=== PATIENT | female | born 1985 | race African-American/Black ===

== ENCOUNTER 2016-12-20 17:24 | Emergency (ER) | payer MEDICARE, MEDICAID ==
[~2016-12-20] VITALS: Ht 175.3 cm; Wt 137.0 kg
[~2016-12-20 17:24] MED LIST: CABERGOLINE0.5 MG PO; DOXYCYCLINE MO100 MG ORAL; FLAGYL500 MG ORAL; IBUPROFEN800 MG PO; NAPROSYN250 M1 ORAL; SYNTHROID150 MCG ORAL; SYNTHROID200 MC1 IV; SYNTHROID50 MCG ORAL; SYNTHROID75 MCG ORAL; VAGISTAT-31 EACH VG; ZOFRAN ODT4 MG ORAL
[2016-12-20 17:54] VITALS: BP 119/87
[2016-12-20] MEDS ORDERED: Dexamethasone 4mg/ml vial IVP ONE (18:00)
--- NOTE | 2016-12-20 18:03 | Emergency Room Report ---
History of Present Illness General Chief Complaint: Pain Present Illness HPI 31 y/o female c/o lupus flair up for 2 weeks. Assoc sxs include body aches, joint pain, LE swelling, abd pain, and very dark urine. States she is on Plaquenil daily for her sxs but that she started experiencing sxs 2 weeks ago and put it off due to her daughter graduating from 5th grade. Denies any current n/v/f/c/d, flank pain, abd pain, back pain, neck pain, photophobia, phonophobia, CP, SOB or headache. Allergies: Coded Allergies: ACETAMINOPHEN (Verified Allergy, Severe, Itching, HIVES, 06/14/13) CODEINE (Verified Allergy, Severe, Itching, HIVES, 06/14/13) HYDROCODONE (Verified Allergy, Severe, Itching, HIVES, 06/14/13) TRAMADOL (Verified Allergy, Unknown, 12/20/16) AMOXICILLIN (Verified Adverse Reaction, Unknown, GI UPSET, 12/20/16) Patient History Past Medical History: see triage record Pertinent Family History: none Last Menstrual Period: 11/26 Now: No : 13 Para: 2 Immunizations: UTD Reviewed Nursing Documentation: PMH: Agreed, PSxH: Agreed Nursing Documentation-PMH Hx Asthma: Yes Hx Gastrointestinal Problems: Yes - ULCER Hx Cerebrovascular Accident: Yes Review of Systems All Other Systems: negative except mentioned in HPI Physical Exam Vital Signs Date Time Temp Pulse Resp B/P Pulse Ox O2 Delivery O2 Flow Rate FiO2 12/20/16 17:41 97.9 81 20 123/84 99 Room Air Sp02 EP Interpretation: reviewed, normal General Appearance: no apparent distress, alert, GCS 15, non-toxic Head: normocephalic, atraumatic Eyes: bilateral eye PERRL, bilateral eye normal inspection ENT: hearing grossly normal, normal pharynx, no angioedema, normal voice Neck: full range of motion, supple/symm/no masses Respiratory: chest non-tender, lungs clear, normal breath sounds, speaking full sentences Cardiovascular #1: regular rate, rhythm, no edema Gastrointestinal: normal bowel sounds, soft, non-distended, no guarding, no rebound, tenderness - non specific Genitourinary: CVA tenderness (R), CVA tenderness (L) Musculoskeletal: back normal, gait/station normal, normal range of motion, tender - non specific tenderness along bilateral LE and UE Neurologic: alert, oriented x3, responsive, motor strength/tone normal, sensory intact, speech normal Psychiatric: judgement/insight normal, memory normal, mood/affect normal, no suicidal/homicidal ideation Skin: normal color, no rash, warm/dry, well hydrated Lymphatic: no adenopathy Medical Decision Making PA Attestation Dr. Andrade my supervising physician with whom patient management has been discussed with. Diagnostic Impression: Primary Impression: Lupus (systemic lupus erythematosus) Qualified Codes: M32.19 - Other organ or system involvement in systemic lupus erythematosus Additional Impression: Myalgia ER Course Pt. presents to the ED c/o body aches due to lupus flare up Ddx considered but are not limited to nephritis, UTI, hypocalcemia, hypokalemia , rhabdo, pneumonia, viral syndrome, hypocalcemia, anemia Vital signs: are WNL, pt. is afebrile H&PE are most consistent with myalgia secondary to SLE flare ORDERS: CBC, CMP, UA ED INTERVENTIONS: IV access, NS, Decadron DISCHARGE: At this time pt. is improved and feels normal. Patient is stable for d/c to home after treatment. Will provide printed patient care instructions, and any necessary prescriptions. Care plan and follow up instructions have been discussed with the patient prior to discharge. Laboratory Tests Test 12/20/16 18:10 12/20/16 19:30 White Blood Count 6.8 K/UL (4.8-10.8) Red Blood Count 4.61 M/UL (4.20-5.40) Hemoglobin 13.0 G/DL (12.0-16.0) Hematocrit 40.6 % (37.0-47.0) Mean Corpuscular Volume 88 FL (80-99) Mean Corpuscular Hemoglobin 28.2 PG (27.0-31.0) Mean Corpuscular Hemoglobin Concent 32.0 G/DL (32.0-36.0) Red Cell Distribution Width 16.3 % (11.6-14.8) H Platelet Count 228 K/UL (150-450) Mean Platelet Volume 10.7 FL (6.5-10.1) H Neutrophils (%) (Auto) 54.8 % (45.0-75.0) Lymphocytes (%) (Auto) 37.9 % (20.0-45.0) Monocytes (%) (Auto) 4.7 % (1.0-10.0) Eosinophils (%) (Auto) 1.6 % (0.0-3.0) Basophils (%) (Auto) 1.1 % (0.0-2.0) Sodium Level 143 mEQ/L (135-145) Potassium Level 3.5 mEQ/L (3.4-4.9) Chloride Level 104 mEQ/L (98-107) Carbon Dioxide Level 27 mEQ/L (20-30) Anion Gap 12 (5-15) Blood Urea Nitrogen 9 mg/dL (7-23) Creatinine 1.1 mg/dL (0.5-0.9) H Estimate Glomerular Filtration Rate > 60 mL/min (>60) Glucose Level 89 mg/dL (74-106) Calcium Level 9.9 mg/dL (8.6-10.2) Total Bilirubin 0.2 mg/dL (0.0-1.2) Aspartate Amino Transferase (AST) 28 U/L (5-40) Alanine Aminotransferase (ALT) 19 U/L (3-33) Alkaline Phosphatase 56 U/L (35-104) Total Creatine Kinase 350 U/L (26-140) H Total Protein 7.7 g/dL (6.6-8.7) Albumin 4.2 g/dL (3.5-5.2) Globulin 3.5 g/dL Albumin/Globulin Ratio 1.2 (1.0-2.7) Urine Color Yellow Urine Appearance Slightly cloudy Urine pH 6 (4.5-8.0) Urine Specific [place] 1.030 (1.005-1.035) Urine Protein Negative (NEGATIVE) Urine Glucose (UA) Negative (NEGATIVE) Urine Ketones Negative (NEGATIVE) Urine Occult Blood Negative (NEGATIVE) Urine Nitrite Negative (NEGATIVE) Urine Bilirubin Negative (NEGATIVE) Urine Urobilinogen Normal MG/DL (0.0-1.0) Urine Leukocyte Esterase 1+ (NEGATIVE) H Urine RBC 0 /HPF (0 - 2) Urine WBC 2-4 /HPF (0 - 2) Urine Squamous Epithelial Cells Moderate /LPF (NONE/OCC) H Urine Amorphous Sediment Moderate /LPF (NONE) H Urine Bacteria Few /HPF (NONE) Lab Results Impression Laboratory Tests Test 12/20/16 18:10 White Blood Count 6.8 K/UL (4.8-10.8) Red Blood Count 4.61 M/UL (4.20-5.40) Hemoglobin 13.0 G/DL (12.0-16.0) Hematocrit 40.6 % (37.0-47.0) Mean Corpuscular Volume 88 FL (80-99) Mean Corpuscular Hemoglobin 28.2 PG (27.0-31.0) Mean Corpuscular Hemoglobin Concent 32.0 G/DL (32.0-36.0) Red Cell Distribution Width 16.3 % (11.6-14.8) H Platelet Count 228 K/UL (150-450) Mean Platelet Volume 10.7 FL (6.5-10.1) H Neutrophils (%) (Auto) 54.8 % (45.0-75.0) Lymphocytes (%) (Auto) 37.9 % (20.0-45.0) Monocytes (%) (Auto) 4.7 % (1.0-10.0) Eosinophils (%) (Auto) 1.6 % (0.0-3.0) Basophils (%) (Auto) 1.1 % (0.0-2.0) Sodium Level 143 mEQ/L (135-145) Potassium Level 3.5 mEQ/L (3.4-4.9) Chloride Level 104 mEQ/L (98-107) Carbon Dioxide Level 27 mEQ/L (20-30) Anion Gap 12 (5-15) Blood Urea Nitrogen 9 mg/dL (7-23) Creatinine 1.1 mg/dL (0.5-0.9) H Estimate Glomerular Filtration Rate > 60 mL/min (>60) Glucose Level 89 mg/dL (74-106) Calcium Level 9.9 mg/dL (8.6-10.2) Total Bilirubin 0.2 mg/dL (0.0-1.2) Aspartate Amino Transferase (AST) 28 U/L (5-40) Alanine Aminotransferase (ALT) 19 U/L (3-33) Alkaline Phosphatase 56 U/L (35-104) Total Creatine Kinase 350 U/L (26-140) H Total Protein 7.7 g/dL (6.6-8.7) Albumin 4.2 g/dL (3.5-5.2) Globulin 3.5 g/dL Albumin/Globulin Ratio 1.2 (1.0-2.7) Chest X-Ray Diagnostic Results Chest X-Ray Ordered: No Last Vital Signs Date Time Temp Pulse Resp B/P Pulse Ox O2 Delivery O2 Flow Rate FiO2 12/20/16 19:39 97.9 83 19 120/88 98 Room Air Disposition: HOME, SELF-CARE Condition: Improved Scripts Prednisone* (PREDNISONE*) 50 Mg Tablet 50 MG ORAL DAILY, #5 TAB 0 Refills Prov: JIM TUCKER 12/20/16 Patient Instructions: Systemic Lupus Erythematosus, Adult Additional Instructions: Patient advised to take medication as directed. Follow up with PCP within next 5 -7 days as needed. Return to ER if you experience any Swelling This can be in the hands, face, feet, belly, or around the eyes, Tiredness, Urine that looks brown or foamy, Urinating less often than normal or abnormal High blood pressure along with symptoms that brought you in. JIM TUCKER Dec 20, 2016 18:02
[2016-12-20 18:23] LABS: BASOPHILS % (AUTO) 1.1 % (0.0-2.0); EOSINOPHILS % (AUTO) 1.6 % (0.0-3.0); LYMPHOCYTES % (AUTO) 37.9 % (20.0-45.0); MEAN CORPUSCULAR HEMOGLOBIN 28.2 PG (27.0-31.0); MEAN CORPUSCULAR VOLUME 88 FL (80-99); MEAN PLATELET VOLUME 10.7 FL (6.5-10.1); MONOCYTES % (AUTO) 4.7 % (1.0-10.0); NEUTROPHILS % (AUTO) 54.8 % (45.0-75.0); PLATELET COUNT 228 K/UL (150-450); RED BLOOD COUNT 4.61 M/UL (4.20-5.40); RED CELL DISTRIBUTION WIDTH 16.3 % (11.6-14.8); WHITE BLOOD COUNT 6.8 K/UL (4.8-10.8)
[2016-12-20 18:52] LABS: ALANINE AMINOTRANSFERASE 19 U/L (3-33); ALBUMIN/GLOBULIN RATIO 1.2 (1.0-2.7); ANION GAP 12 (5-15); ASPARTATE AMINO TRANSFERASE 28 U/L (5-40); CALCIUM 9.9 mg/dL (8.6-10.2); CARBON DIOXIDE 27 mEQ/L (20-30); CHLORIDE 104 mEQ/L (98-107); CREATININE 1.1 mg/dL (0.5-0.9); GLOMERULAR FILTRATION RATE > 60 mL/min (>60); HEMOLYSIS 4; POTASSIUM 3.5 mEQ/L (3.4-4.9); SODIUM 143 mEQ/L (135-145); TOTAL PROTEIN 7.7 g/dL (6.6-8.7)
[2016-12-20] MEDS ORDERED: PREDNISONE50 MG ORAL (19:24)
[2016-12-20 19:39] VITALS: BP 120/88
[2016-12-20 20:09] LABS: APPEARANCE,URINE SLIGHTLY CLOUDY; KETONES,URINE NEGATIVE (NEGATIVE); LEUKOCYTE ESTERASE ,URINE 1+ (NEGATIVE); NITRITE,URINE NEGATIVE (NEGATIVE); PH,URINE 6 (4.5-8.0); PROTEIN,URINE NEGATIVE (NEGATIVE); UROBILINOGEN,URINE NORMAL MG/DL (0.0-1.0)
[2016-12-20 20:20] LABS: AMORPHOUS SEDIMENT,UR MODERATE /LPF; BACTERIA,URINE FEW /HPF; RBC,URINE 0 /HPF (0 - 2); SQUAMOUS EPITHELIAL CELL,UR MODERATE /LPF (NONE/OCC)
== END 2016-12-20 19:39 | disposition home or self-care (01) ==
LOC: EMR 18:02
DX: M32.9 Systemic lupus erythematosus, unspecified (principal); M79.1 Myalgia; J45.909 Unspecified asthma, uncomplicated; Z86.73 Personal history of transient ischemic attack (TIA), and cerebral infarction without residual deficits
CPT/HCPCS: 36415; 80053; 81001; 82550; 85025; 96374; 96375; 99284; J1100

== ENCOUNTER 2018-01-27 20:40 | Emergency (ER) | payer MEDICARE, MEDICAID ==
[~2018-01-27] VITALS: Ht 175.3 cm; Wt 133.4 kg
[~2018-01-27 20:40] MED LIST changes: +PREDNISONE50 MG ORAL
--- NOTE | 2018-01-27 21:21 | Emergency Room Report ---
History of Present Illness General Chief Complaint: Complications Source: Patient Present Illness HPI Is a 32-year-old female who has lupus. She has a history of 14 with 8 miscarriages. Has to and 2 live . She presents with chief complaint of vaginal bleeding. She says she is approximately 2-4 weeks . She took a home dressing test 2 weeks ago and was positive. She started spotting 4 days ago. Today she passed several large clots. Cramping in nature. No nausea no vomiting. No fever chills. Nothing made it better. Nothing made it worse. She is O+ blood type. Allergies: Coded Allergies: ACETAMINOPHEN (Verified Allergy, Severe, Itching, HIVES, 06/14/13) CODEINE (Verified Allergy, Severe, Itching, HIVES, 06/14/13) HYDROCODONE (Verified Allergy, Severe, Itching, HIVES, 06/14/13) TRAMADOL (Verified Allergy, Unknown, 12/20/16) AMOXICILLIN (Verified Adverse Reaction, Unknown, GI UPSET, 12/20/16) Patient History Past Medical History: see triage record, old chart reviewed Past Surgical History: other Pertinent Family History: none Social History: Denies: smoking Last Menstrual Period: November Now: Yes Immunizations: other Reviewed Nursing Documentation: PMH: Agreed; PSxH: Agreed Nursing Documentation-PMH Hx Asthma: Yes Hx Gastrointestinal Problems: Yes - ULCER Hx Cerebrovascular Accident: Yes Review of Systems Eye: Denies: eye pain, blurred vision ENT: Denies: ear pain, nose congestion, throat swelling Respiratory: Denies: cough, shortness of breath Cardiovascular: Denies: chest pain, palpitations Gastrointestinal: Denies: abdominal pain, diarrhea, nausea, vomiting Musculoskeletal: Denies: back pain, joint pain Skin: Denies: rash Neurological: Denies: headache, numbness Endocrine: Denies: increased thirst, increased urine Hematologic/Lymphatic: Denies: easy bruising All Other Systems: negative except mentioned in HPI Physical Exam Vital Signs Date Time Temp Pulse Resp B/P (MAP) Pulse Ox O2 Delivery O2 Flow Rate FiO2 01/27/18 20:53 98.1 96 18 124/83 99 Room Air 98.1 vitals normal Sp02 EP Interpretation: reviewed, normal General Appearance: well appearing, no apparent distress, alert, obese Head: normocephalic, atraumatic Eyes: bilateral eye PERRL, bilateral eye EOMI ENT: hearing grossly normal, normal pharynx Neck: full range of motion, supple, no meningismus Respiratory: chest non-tender, lungs clear, normal breath sounds Cardiovascular #1: regular rate, rhythm, no murmur Gastrointestinal: normal bowel sounds, non tender, no mass, no organomegaly, no bruit, non-distended Musculoskeletal: back normal, gait/station normal, normal range of motion Psychiatric: mood/affect normal Skin: warm/dry Medical Decision Making Diagnostic Impression: Primary Impression: Spontaneous miscarriage ER Course Patient with symptoms consistent with spontaneous miscarriage. No evidence of ectopic. This may be very early in the but she show me large amount of clots in the toilet. She has a history of miscarriages. This most likely due to her lupus. CT/MRI/US Diagnostic Results CT/MRI/US Diagnostic Results : Imaging Test Ordered: pelvic ultrasound Impression increase echogenic material in uterus and pelvic area. Last Vital Signs Date Time Temp Pulse Resp B/P (MAP) Pulse Ox O2 Delivery O2 Flow Rate FiO2 01/27/18 20:53 98.1 96 18 124/83 99 Room Air 98.1 Status: improved Disposition: HOME, SELF-CARE Condition: Stable Additional Instructions: Follow-up your doctor in 7 days. Return if symptom worsen. FREDDY LEPE M.D. Jan 27, 2018 21:21
[2018-01-27 23:05] VITALS: BP 100/71
--- NOTE | 2018-01-28 09:40 | Diagnostic Imaging Report ---
Indication: Positive home test, pelvic pain, currently negative beta-hCG, passing clots Technique: Transabdominal and transvaginal images Comparison: 10/03/2013 Findings: Uterus measures 8.8 cm length by 3.6 cm AP. The endometrium demonstrates minimal echogenic material. There is a questionable 2.5 cm fundal fibroid. The left ovary measures 2.5 cm in length. Right ovary measures 3.9 cm in length and demonstrates a 3 cm corpus luteum. Nabothian cysts are seen in the cervix. No free cul-de-sac fluid Impression: No intrauterine demonstrated. Given stated clinical history and laboratory findings, most likely represents spontaneous . No definite evidence of retained products of conception. Recommend serial beta hCGs and follow-up sonography is indicated Questionable 2.5 cm fundal fibroid, not demonstrated previously so could be artifactual
== END 2018-01-27 23:07 | disposition home or self-care (01) ==
LOC: EMR 21:09
DX: O03.9 Complete or unspecified spontaneous abortion without complication (principal); Z88.6 Allergy status to analgesic agent; Z88.0 Allergy status to penicillin; Z88.5 Allergy status to narcotic agent
CPT/HCPCS: 36415; 76830; 76856; 84702; 99284

== ENCOUNTER 2018-02-16 20:47 | Emergency (ER) | payer MEDICARE, MEDICAID ==
[~2018-02-16] VITALS: Ht 175.3 cm; Wt 128.4 kg
[2018-02-16 21:00] VITALS: BP 115/84
--- NOTE | 2018-02-16 21:06 | Emergency Room Report ---
History of Present Illness General Chief Complaint: Pain Source: Patient, Medical Record Present Illness HPI Is a 32-year-old female with a history lupus with frequent flareups. She also has a history kidney stone. She said she's been having back pain mostly on the right side but also on the left side. His been ongoing for last 3 days. She's felt like kidney stones or moving. This also caused a flareup of her lupus. Pain is 10 out of 10. Worse with movement. Unable to sleep. No nausea no vomiting. No fever chills but no dysuria frequency. No hematuria. The demented better. Nothing made it worse. No vaginal bleeding. Allergies: Coded Allergies: ACETAMINOPHEN (Verified Allergy, Severe, Itching, HIVES, 02/16/18) CODEINE (Verified Allergy, Severe, Itching, HIVES, 02/16/18) HYDROCODONE (Verified Allergy, Severe, Itching, HIVES, 02/16/18) TRAMADOL (Verified Allergy, Unknown, 02/16/18) AMOXICILLIN (Verified Adverse Reaction, Unknown, GI UPSET, 02/16/18) Patient History Past Medical History: see triage record, old chart reviewed Past Surgical History: other Pertinent Family History: none Social History: Denies: smoking Last Menstrual Period: unk Now: No Immunizations: other Reviewed Nursing Documentation: PMH: Agreed; PSxH: Agreed Nursing Documentation-PMH Past Medical History: No History, Except For Hx Asthma: Yes Hx Gastrointestinal Problems: Yes - ULCER Hx Cerebrovascular Accident: Yes Review of Systems Eye: Denies: eye pain, blurred vision ENT: Denies: ear pain, nose congestion, throat swelling Respiratory: Denies: cough, shortness of breath Cardiovascular: Denies: chest pain, palpitations Gastrointestinal: Denies: abdominal pain, diarrhea, nausea, vomiting Musculoskeletal: Reports: back pain; Denies: joint pain Skin: Denies: rash Neurological: Denies: headache, numbness Endocrine: Denies: increased thirst, increased urine Hematologic/Lymphatic: Denies: easy bruising All Other Systems: negative except mentioned in HPI Physical Exam Vital Signs Date Time Temp Pulse Resp B/P (MAP) Pulse Ox O2 Delivery O2 Flow Rate FiO2 02/16/18 20:50 98.1 90 16 117/87 98 98.1 vitals normal Sp02 EP Interpretation: reviewed, normal General Appearance: well appearing, no apparent distress, alert, obese Head: normocephalic, atraumatic Eyes: bilateral eye PERRL, bilateral eye EOMI ENT: hearing grossly normal, normal pharynx Neck: full range of motion, supple, no meningismus Respiratory: chest non-tender, lungs clear, normal breath sounds Cardiovascular #1: regular rate, rhythm, no murmur Gastrointestinal: normal bowel sounds, non tender, no mass, no organomegaly, no bruit, non-distended Genitourinary: CVA tenderness (R) Musculoskeletal: gait/station normal, normal range of motion Psychiatric: mood/affect normal Skin: warm/dry Medical Decision Making Diagnostic Impression: Primary Impression: Back pain Qualified Codes: M54.5 - Low back pain ER Course Patient presents with back pain. No evidence of ureteral stone. No evidence of infection. No evidence of ectopic, acute abdomen, cauda equina syndrome, spinal epidural abscess or neoplastic process. Pain is better now. We'll discharge home. Lab Results Impression labs normal CT/MRI/US Diagnostic Results CT/MRI/US Diagnostic Results : Imaging Test Ordered: CT abdomen and pelvis Impression negative per radiologist Last Vital Signs Date Time Temp Pulse Resp B/P (MAP) Pulse Ox O2 Delivery O2 Flow Rate FiO2 02/16/18 20:50 98.1 90 16 117/87 98 98.1 Status: improved Disposition: HOME, SELF-CARE Condition: Stable Scripts Oxycodone Hcl/Acetaminophen 5-325* (OXYCODONE-ACETAMINOPHEN 5-325*) 1 Each Tablet 1 TAB ORAL Q6H PRN for For Pain, #15 TAB 0 Refills Prov: FREDDY LEPE M.D. 02/16/18 Additional Instructions: Follow-up with your doctor in 7 days. Return if symptom worsen. FREDDY LEPE M.D. Feb 16, 2018 21:06
[2018-02-16 21:15] LABS: APPEARANCE,URINE CLEAR; BILIRUBIN, URINE NEGATIVE (NEGATIVE); COLOR,URINE PALE YELLOW; GLUCOSE, URINE (UA) NEGATIVE (NEGATIVE); KETONES,URINE NEGATIVE (NEGATIVE); LEUKOCYTE ESTERASE ,URINE NEGATIVE (NEGATIVE); NITRITE,URINE NEGATIVE (NEGATIVE); PH,URINE 6 (4.5-8.0); PROTEIN,URINE NEGATIVE (NEGATIVE); UROBILINOGEN,URINE NORMAL (NORMAL)
[2018-02-16] MEDS ORDERED: Morphine Sulfate 10mg/ml Inj IVP ONE (21:15)
[2018-02-16] MEDS ORDERED: DiphenhydrAMINE 50mg/ml Inj IVP ONE (21:30)
[2018-02-16 21:41] LABS: HEMATOCRIT 45.7 % (37.0-47.0); HEMOGLOBIN 14.2 G/DL (12.0-16.0); LYMPHOCYTES % (AUTO) 32.7 % (20.0-45.0); MEAN CORPUSCULAR VOLUME 85 FL (80-99); MONOCYTES % (AUTO) 4.1 % (1.0-10.0); NEUTROPHILS % (AUTO) 61.3 % (45.0-75.0); PLATELET COUNT 343 K/UL (150-450); RED BLOOD COUNT 5.39 M/UL (4.20-5.40); RED CELL DISTRIBUTION WIDTH 15.5 % (11.6-14.8); WHITE BLOOD COUNT 9.6 K/UL (4.8-10.8)
[2018-02-16 21:47] LABS: ANION GAP 8 mmol/L (5-15); BLOOD UREA NITROGEN 11 mg/dL (7-18); CALCIUM 9.8 MG/DL (8.5-10.1); CARBON DIOXIDE 26 MMOL/L (21-32); CHLORIDE 106 MMOL/L (98-107); POTASSIUM 3.9 MMOL/L (3.5-5.1); SODIUM 139 MMOL/L (136-145)
[2018-02-16] MEDS ORDERED: OXYCODONE-ACET1 EAC3 ORAL (22:25)
[2018-02-16 22:40] VITALS: BP 115/84
--- NOTE | 2018-02-17 10:24 | Diagnostic Imaging Report ---
Indication: Abdominal pain Technique: Noncontrast CT of the abdomen and pelvis utilizing automated exposure control. Axial, sagittal and coronal reformats presented. CT dose: Total DLP 1537.85 mGycm; CTDI vol 26.25 mGy Comparison: 07/28/2013 Findings: Please note that evaluation of the abdominal and pelvic viscera and vascular structures is limited without the use of intravenous and oral contrast. Within these limitations the following observations are made: Imaged lung bases without focal airspace consolidation, pleural effusion or pneumothorax. Heart size within normal limits. No significant pericardial effusion. Noncontrast evaluation of the liver, gallbladder, spleen, adrenal glands and pancreas grossly unremarkable. Kidneys symmetric in size. There are punctate nonobstructing stones in the lower poles of the bilateral kidneys; the largest stone is on the right and measures approximately 6 mm. No evidence of hydronephrosis bilaterally. Bladder is decompressed, limiting its evaluation. Uterus and adnexa are grossly unremarkable for noncontrast CT. There is no free intraperitoneal air or fluid. No evidence of bowel obstruction or definite inflammatory change in the mesentery. Appendix not definitively identified however there are no focal inflammatory changes in the right lower quadrant suggest acute appendicitis. Abdominal aorta is normal in caliber. No pathologically enlarged/conglomerate lymphadenopathy. No acute osseous abnormality. There is a tiny fat-containing umbilical hernia. IMPRESSION: Limited exam without intravenous and oral contrast. Within these limitations: * Bilateral subcentimeter nonobstructing renal calculi. No evidence of hydronephrosis bilaterally. * No bowel obstruction or inflammation. This corresponds with the statrad preliminary report. The CT scanner at [facility] is accredited by the [employer] and the scans are performed using protocols designed to limit radiation exposure to as low as reasonably achievable to attain images of sufficient resolution adequate for diagnostic evaluation.
== END 2018-02-16 22:44 | disposition home or self-care (01) ==
LOC: EMR 21:54
DX: M54.5 Low back pain (principal); M32.9 Systemic lupus erythematosus, unspecified; J45.909 Unspecified asthma, uncomplicated; Z86.73 Personal history of transient ischemic attack (TIA), and cerebral infarction without residual deficits
CPT/HCPCS: 36415; 74176; 80048; 80307; 81003; 81025; 85025; 99284; J1200; J2270; J2405

== ENCOUNTER 2018-04-16 19:44 | Emergency (ER) | payer MEDICARE, MEDICAID ==
[~2018-04-16] VITALS: Ht 175.3 cm; Wt 134.3 kg
[~2018-04-16 19:44] MED LIST changes: +OXYCODONE-ACET1 EAC3 ORAL
[2018-04-16 20:03] VITALS: BP 109/75
[2018-04-16] MEDS ORDERED: Sodium Chloride 500ML 500 ML IV ONE (20:18)
[2018-04-16 20:24] LABS: APPEARANCE,URINE CLOUDY; BILIRUBIN, URINE NEGATIVE (NEGATIVE); COLOR,URINE RED; GLUCOSE, URINE (UA) NEGATIVE (NEGATIVE); KETONES,URINE NEGATIVE (NEGATIVE); LEUKOCYTE ESTERASE ,URINE 1+ (NEGATIVE); NITRITE,URINE NEGATIVE (NEGATIVE); PH,URINE 8 (4.5-8.0); PROTEIN,URINE 4+ (NEGATIVE); UROBILINOGEN,URINE NORMAL MG/DL (0.0-1.0)
[2018-04-16] MEDS ORDERED: Morphine Sulfate 4mg/ml Inj (IV USE ONLY) IVP ONE (20:30)
[2018-04-16 21:05] LABS: EOSINOPHILS % (AUTO) 1.7 % (0.0-3.0); HEMATOCRIT 40.1 % (37.0-47.0); HEMOGLOBIN 13.3 G/DL (12.0-16.0); MEAN CORPUSCULAR VOLUME 88 FL (80-99); NEUTROPHILS % (AUTO) 65.4 % (45.0-75.0); PLATELET COUNT 283 K/UL (150-450); RED BLOOD COUNT 4.55 M/UL (4.20-5.40); RED CELL DISTRIBUTION WIDTH 15.1 % (11.6-14.8)
[2018-04-16 21:31] LABS: ANION GAP 7 mmol/L (5-15); BLOOD UREA NITROGEN 13 mg/dL (7-18); CALCIUM 9.9 MG/DL (8.5-10.1); CARBON DIOXIDE 25 MMOL/L (21-32); CHLORIDE 108 MMOL/L (98-107); CREATININE 1.2 MG/DL (0.55-1.30); POTASSIUM 3.3 MMOL/L (3.5-5.1); SODIUM 140 MMOL/L (136-145)
[2018-04-16 21:35] LABS: ALANINE AMINOTRANSFERASE 20 U/L (12-78); ALBUMIN 3.6 G/DL (3.4-5.0); ALBUMIN/GLOBULIN RATIO 0.8 (1.0-2.7); ALKALINE PHOSPHATASE 72 U/L (46-116); ASPARTATE AMINO TRANSFERASE 15 U/L (15-37); BILIRUBIN,TOTAL 0.4 MG/DL (0.2-1.0)
[2018-04-16] MEDS ORDERED: PERCOCET 5-3251 EACH ORAL (22:56)
--- NOTE | 2018-04-16 23:04 | Diagnostic Imaging Report ---
EXAM: US Pelvis Complete, Transabdominal CLINICAL HISTORY: ABD PAIN TECHNIQUE: Real-time transabdominal pelvic ultrasound (complete) with image documentation. COMPARISON: CT performed on 02/16/18. FINDINGS: Uterus/cervix: The uterus measures 9.3 x 4.1 x 6.4 cm. The endometrial stripe measures 7 mm. Hypoechoic areas are seen within the uterus which may be related to intramural fibroids. The largest measures approximately 1.7 x 2.1 x 0.9 cm. Right ovary: The right ovary is grossly unremarkable and measures 2.9 x 1.7 x 2.1 cm. The right ovary demonstrates vascular flow. Left ovary: The left ovary is grossly unremarkable and measures 4.4 x 2.2 x 2.4 cm. The left ovary demonstrates vascular flow. Free fluid: No evidence for free fluid or adnexal mass. Bladder: Grossly unremarkable. IMPRESSION: Fibroids suspected in the uterus.
[2018-04-16 23:06] VITALS: BP 110/73
--- NOTE | 2018-04-19 22:32 | Emergency Room Report ---
History of Present Illness General Chief Complaint: Abdominal Pain Source: Patient, Medical Record Present Illness HPI 32-year-old female presents ED for evaluation. Presenting with vaginal bleeding and lower abdominal pain. States she's had bleeding for nearly 2 months now. Pain is dull, 9 out of 10, nonradiating. Was told that she has ovarian cysts in the past. Does not believe she is . Denies nausea or vomiting. Denies fevers or chills. No other aggravating relieving factors. Denies any other associated symptoms Allergies: Coded Allergies: ACETAMINOPHEN (Verified Allergy, Severe, Itching, HIVES, 04/16/18) CODEINE (Verified Allergy, Severe, Itching, HIVES, 04/16/18) HYDROCODONE (Verified Allergy, Severe, Itching, HIVES, 04/16/18) TRAMADOL (Verified Allergy, Unknown, 04/16/18) AMOXICILLIN (Verified Adverse Reaction, Unknown, GI UPSET, 04/16/18) Patient History Past Medical History: asthma, CVA/TIA Past Surgical History: none Pertinent Family History: none Social History: Denies: smoking, alcohol use, drug use Last Menstrual Period: a month and half ago Now: No Immunizations: UTD Reviewed Nursing Documentation: PMH: Agreed; PSxH: Agreed Nursing Documentation-PMH Past Medical History: No History, Except For Hx Asthma: Yes Hx Gastrointestinal Problems: Yes - ULCER Hx Cerebrovascular Accident: Yes Review of Systems All Other Systems: negative except mentioned in HPI Physical Exam Vital Signs Date Time Temp Pulse Resp B/P (MAP) Pulse Ox O2 Delivery O2 Flow Rate FiO2 04/16/18 19:50 98.1 85 15 109/75 97 Room Air 98.1 Sp02 EP Interpretation: reviewed, normal General Appearance: no apparent distress, alert, GCS 15, non-toxic Head: normocephalic, atraumatic Eyes: bilateral eye normal inspection, bilateral eye PERRL ENT: hearing grossly normal, normal pharynx, no angioedema, normal voice Neck: full range of motion, supple/symm/no masses Respiratory: chest non-tender, lungs clear, normal breath sounds, speaking full sentences Cardiovascular #1: regular rate, rhythm, no edema Cardiovascular #2: 2+ carotid (R), 2+ carotid (L), 2+ radial (R), 2+ radial (L) , 2+ dorsalis pedis (R), 2+ dorsalis pedis (L) Gastrointestinal: normal bowel sounds, non tender, soft, non-distended, no guarding, no rebound Rectal: deferred Genitourinary: normal inspection, no CVA tenderness Musculoskeletal: back normal, gait/station normal, normal range of motion, non- tender Neurologic: alert, oriented x3, responsive, motor strength/tone normal, sensory intact, speech normal Psychiatric: judgement/insight normal, memory normal, mood/affect normal, no suicidal/homicidal ideation Reflexes: 3+ bicep (R), 3+ bicep (L), 3+ tricep (R), 3+ tricep (L), 3+ knee (R) , 3+ knee (L) Skin: normal color, no rash, warm/dry, well hydrated Lymphatic: no adenopathy Medical Decision Making Diagnostic Impression: Primary Impression: Fibroids Qualified Codes: D25.9 - Leiomyoma of uterus, unspecified ER Course Hospital Course 32-year-old female presents to ED complaining of lower abdominal pain + bleeding x 2 months Differential diagnoses include: gastrits, gastroenterits, ectopic , ovarian torsion/cyst, UTI Clinical course Patient placed on stretcher in ED. After initial history and physical I ordered labs, IV fluids and pain meds and pelvic ultrasound. Labs-no leukocytosis, hb/hct stable, electrolytes okay, beta hCG negative, UA negative Pelvic ultrasound- fibroids Discussed findings with patient. Patient states she was told many years ago that she may have fibroids but thought that they went away. I explained about fibroids to the patient. patient states she has a OBGYN to followup with. Safe for discharge with close outpatient follow-up Diagnosis - fibroids Stable and discharged to home. Followup with PMD/OUTSOLE SCHEDULER. Return to ED if symptoms recur or worsen Labs Test 04/16/18 20:10 04/16/18 20:32 Urine Color Red Urine Appearance Cloudy Urine pH 8 (4.5-8.0) Urine Specific [place] 1.015 (1.005-1.035) Urine Protein 4+ (NEGATIVE) Urine Glucose (UA) Negative (NEGATIVE) Urine Ketones Negative (NEGATIVE) Urine Blood 5+ (NEGATIVE) Urine Nitrite Negative (NEGATIVE) Urine Bilirubin Negative (NEGATIVE) Urine Urobilinogen Normal MG/DL (0.0-1.0) Urine Leukocyte Esterase 1+ (NEGATIVE) Urine RBC Tntc /HPF (0 - 2) Urine WBC 5-10 /HPF (0 - 2) Urine Squamous Epithelial Cells Moderate /LPF (NONE/OCC) Urine Amorphous Sediment Moderate /LPF (NONE) Urine Bacteria Moderate /HPF (NONE) Urine HCG, Qualitative Negative (NEGATIVE) White Blood Count 9.0 K/UL (4.8-10.8) Red Blood Count 4.55 M/UL (4.20-5.40) Hemoglobin 13.3 G/DL (12.0-16.0) Hematocrit 40.1 % (37.0-47.0) Mean Corpuscular Volume 88 FL (80-99) Mean Corpuscular Hemoglobin 29.1 PG (27.0-31.0) Mean Corpuscular Hemoglobin Concent 33.1 G/DL (32.0-36.0) Red Cell Distribution Width 15.1 % (11.6-14.8) Platelet Count 283 K/UL (150-450) Mean Platelet Volume 9.5 FL (6.5-10.1) Neutrophils (%) (Auto) 65.4 % (45.0-75.0) Lymphocytes (%) (Auto) 28.0 % (20.0-45.0) Monocytes (%) (Auto) 4.0 % (1.0-10.0) Eosinophils (%) (Auto) 1.7 % (0.0-3.0) Basophils (%) (Auto) 1.0 % (0.0-2.0) Prothrombin Time 10.7 SEC (9.30-11.50) Prothromb Time International Ratio 1.0 (0.9-1.1) Activated Partial Thromboplast Time 30 SEC (23-33) Sodium Level 140 MMOL/L (136-145) Potassium Level 3.3 MMOL/L (3.5-5.1) Chloride Level 108 MMOL/L (98-107) Carbon Dioxide Level 25 MMOL/L (21-32) Anion Gap 7 mmol/L (5-15) Blood Urea Nitrogen 13 mg/dL (7-18) Creatinine 1.2 MG/DL (0.55-1.30) Estimat Glomerular Filtration Rate > 60 mL/min (>60) Glucose Level 101 MG/DL (74-106) Calcium Level 9.9 MG/DL (8.5-10.1) Total Bilirubin 0.4 MG/DL (0.2-1.0) Aspartate Amino Transf (AST/SGOT) 15 U/L (15-37) Alanine Aminotransferase (ALT/SGPT) 20 U/L (12-78) Alkaline Phosphatase 72 U/L (46-116) Total Protein 8.1 G/DL (6.4-8.2) Albumin 3.6 G/DL (3.4-5.0) Globulin 4.5 g/dL Albumin/Globulin Ratio 0.8 (1.0-2.7) Lipase 225 U/L (73-393) Human Chorionic Gonadotropin, Quant 1 mIU/mL (1-6) CT/MRI/US Diagnostic Results CT/MRI/US Diagnostic Results : Imaging Test Ordered: Pelvic US Impression Uterus/cervix: The uterus measures 9.3 x 4.1 x 6.4 cm. The endometrial stripe measures 7 mm. Hypoechoic areas are seen within the uterus which may be related to intramural fibroids. The largest measures approximately 1.7 x 2.1 x 0.9 cm. Right ovary: The right ovary is grossly unremarkable and measures 2.9 x 1.7 x 2.1 cm. The right ovary demonstrates vascular flow. Left ovary: The left ovary is grossly unremarkable and measures 4.4 x 2.2 x 2.4 cm. The left ovary demonstrates vascular flow. Free fluid: No evidence for free fluid or adnexal mass. Bladder: Grossly unremarkable. Last Vital Signs Date Time Temp Pulse Resp B/P (MAP) Pulse Ox O2 Delivery O2 Flow Rate FiO2 04/16/18 23:06 83 15 110/73 98 Room Air 04/16/18 23:04 98.1 98.1 Status: improved Disposition: HOME, SELF-CARE Condition: Stable Scripts Oxycodone/Acetaminophen 5-325* (PERCOCET 5-325 MG TABLET*) 1 Each Tablet 1 TAB ORAL Q4H PRN for For Pain, #15 TAB 0 Refills Prov: Deion Andrade MD 04/16/18 Referrals: NOT CHOSEN IPA/,REFERRING (PCP) Patient Instructions: Uterine Fibroids, [id number] Deion Andrade MD Apr 19, 2018 22:32
== END 2018-04-16 23:04 | disposition home or self-care (01) ==
LOC: EMR 20:30
DX: D25.9 Leiomyoma of uterus, unspecified (principal); J45.909 Unspecified asthma, uncomplicated; R10.30 Lower abdominal pain, unspecified; Z86.73 Personal history of transient ischemic attack (TIA), and cerebral infarction without residual deficits; Z87.19 Personal history of other diseases of the digestive system; Z88.6 Allergy status to analgesic agent; Z88.5 Allergy status to narcotic agent; Z88.1 Allergy status to other antibiotic agents
CPT/HCPCS: 36415; 76830; 76856; 80053; 81003; 81025; 83690; 84702; 85025; 85610; 85730; 86850; 86900; 86901; 87086; 96374; 99284; J2270; J7040

== ENCOUNTER 2019-03-18 17:02 | Emergency (ER) | payer MEDICARE, MEDICAID ==
[~2019-03-18] VITALS: Ht 175.3 cm; Wt 137.0 kg
[~2019-03-18 17:02] MED LIST changes: +PERCOCET 5-3251 EACH ORAL
[2019-03-18 17:22] VITALS: BP 127/84
--- NOTE | 2019-03-18 17:24 | NUR ---
ED Nurse Note:pt. came with multiple red dots on her lower legs from insect bites
[2019-03-18 17:44] VITALS: BP 127/84
[2019-03-18] MEDS ORDERED: Cephalexin 500mg cap ORAL ONE (17:45)
--- NOTE | 2019-03-18 17:45 | NUR ---
ER DISCHARGE NOTE: Patient is cleared to be discharged per ERMD, pt is aox4, on room air, with stable vital signs. pt was given dc and prescription instructions, pt was able to verbalize understanding, pt is able to ambulate with steady gait. pt took all belongings.
[2019-03-18] MEDS ORDERED: PREDNISONE20 MG ORAL (17:47)
[2019-03-18] MEDS ORDERED: CEPHALEXIN500 MG ORAL (17:47)
--- NOTE | 2019-03-18 23:28 | Emergency Room Report ---
History of Present Illness General Chief Complaint: Skin Rash/Abscess Source: Patient, Medical Record Present Illness HPI 33-year-old female presents ED for evaluation. Complaining of multiple insect bites over both legs. Happened yesterday while playing with her children in the yard. States that the insect bites have been triggered a lupus flare. History of lupus. Pain is throbbing, 7 out of 10, nonradiating. Denies fevers or chills. Denies chest pain or shortness of breath. No other aggravating relieving factors. Denies any other associated symptoms Allergies: Coded Allergies: ACETAMINOPHEN (Verified Allergy, Severe, Itching, HIVES, 04/16/18) CODEINE (Verified Allergy, Severe, Itching, HIVES, 04/16/18) HYDROCODONE (Verified Allergy, Severe, Itching, HIVES, 04/16/18) TRAMADOL (Verified Allergy, Unknown, 04/16/18) AMOXICILLIN (Verified Adverse Reaction, Unknown, GI UPSET, 04/16/18) Patient History Past Medical History: asthma, ulcer, other - SLE Past Surgical History: none Pertinent Family History: none Social History: Denies: smoking, alcohol use, drug use Last Menstrual Period: 02/10/2019 Now: No Immunizations: UTD Reviewed Nursing Documentation: PMH: Agreed; PSxH: Agreed Nursing Documentation-PMH Past Medical History: No History, Except For Hx Cardiac Problems: No - LUPUS Hx Hypertension: No - Hypothyroidism Hx Pacemaker: No - FIBROMYALGIA Hx Asthma: Yes Hx COPD: No Hx Diabetes: No Hx Cancer: No Hx Gastrointestinal Problems: Yes - Gastric ulcer Hx Dialysis: No History Of Psychiatric Problem: No Hx Neurological Problems: Yes - BRAIN TURMOR NON MALIGNENT Hx Cerebrovascular Accident: Yes Hx Seizures: No Review of Systems All Other Systems: negative except mentioned in HPI Physical Exam Vital Signs Date Time Temp Pulse Resp B/P (MAP) Pulse Ox O2 Delivery O2 Flow Rate FiO2 03/18/19 17:15 97.9 84 18 127/84 (98) 99 Room Air Sp02 EP Interpretation: reviewed, normal General Appearance: no apparent distress, alert, GCS 15, non-toxic Head: normocephalic Eyes: bilateral eye normal inspection, bilateral eye PERRL ENT: normal ENT inspection Neck: normal inspection Respiratory: normal inspection Cardiovascular #1: normal inspection Gastrointestinal: normal inspection Rectal: deferred Genitourinary: no CVA tenderness Musculoskeletal: back normal, gait/station normal, normal range of motion, tender Neurologic: alert, oriented x3, responsive, motor strength/tone normal, sensory intact, speech normal Psychiatric: normal inspection Skin: other - multiple erythematous papules noted to both legs. nonerythematous base. Lymphatic: normal inspection Medical Decision Making Diagnostic Impression: Primary Impression: Lupus (systemic lupus erythematosus) Qualified Codes: M32.9 - Systemic lupus erythematosus, unspecified Additional Impression: Insect bites Qualified Codes: S80.869A - Insect bite (nonvenomous), unspecified lower leg, initial encounter; W57.XXXA - Bitten or stung by nonvenomous insect and other nonvenomous arthropods, initial encounter ER Course Hospital Course 33-year-old female presents to ED with redness, swelling to bilateral legs Differential diagnoses include: Cellulitis, dermatitis, insect bite, abscess Clinical course Patient placed on stretcher. After initial history, physical exam reveals a female in no acute distress. On exam there are multiple erythematous papules noted on both legs. None erythematous base. No fluctuance or discharge. Consistent with insect bites. Requiring antibiotics. Patient states this is triggering a lupus flare. States that she typically responds well to prednisone. Given Keflex and prednisone here. Safe for discharge for close outpatient follow-up. States she has a PMD Diagnosis - lupus, bug bite stable and discharged to home with prescription for prednisone, Keflex. Instructed to followup with PMD. Instructed return to ED if symptoms recur or worsen Last Vital Signs Date Time Temp Pulse Resp B/P (MAP) Pulse Ox O2 Delivery O2 Flow Rate FiO2 03/18/19 17:44 97.9 80 18 127/84 99 Room Air Status: improved Disposition: HOME, SELF-CARE Condition: Stable Scripts Prednisone* (PREDNISONE*) 20 Mg Tablet 60 MG ORAL DAILY, #15 TAB Prov: Deion Andrade MD 03/18/19 Cephalexin* (KEFLEX*) 500 Mg Capsule 500 MG ORAL EVERY 6 HOURS for 7 Days, CAP Prov: Deion Andrade MD 03/18/19 Referrals: NON PHYSICIAN (PCP) Tere Gomez [facility] Patient Instructions: Insect Bite, [id number] Deion Andrade MD Mar 18, 2019 23:28
== END 2019-03-18 17:45 | disposition home or self-care (01) ==
LOC: EMR 17:31
DX: S80.862A Insect bite (nonvenomous), left lower leg, initial encounter (principal); S80.861A Insect bite (nonvenomous), right lower leg, initial encounter; M32.9 Systemic lupus erythematosus, unspecified; E03.9 Hypothyroidism, unspecified; M79.7 Fibromyalgia; J45.909 Unspecified asthma, uncomplicated; Z87.11 Personal history of peptic ulcer disease; Z86.73 Personal history of transient ischemic attack (TIA), and cerebral infarction without residual deficits; Z86.011 Personal history of benign neoplasm of the brain; Z88.6 Allergy status to analgesic agent; Z88.1 Allergy status to other antibiotic agents; W57.XXXA Bitten or stung by nonvenomous insect and other nonvenomous arthropods, initial encounter; Y92.9 Unspecified place or not applicable
CPT/HCPCS: 99282; J7512

== ENCOUNTER 2019-05-15 19:35 | Emergency (ER) | payer MEDICARE, MEDICAID ==
[~2019-05-15] VITALS: Ht 175.3 cm; Wt 134.3 kg
[~2019-05-15 19:35] MED LIST changes: +CEPHALEXIN500 MG ORAL; +PREDNISONE20 MG ORAL
[2019-05-15 19:49] VITALS: BP 120/81
--- NOTE | 2019-05-15 19:52 | NUR ---
ED Nurse Note: pt walked in to ED for C/O body ache secondary to "lupas flare ups". pt states her whole body is painful. pt is alert x4.
--- NOTE | 2019-05-15 20:08 | NUR ---
ED Nurse Note: urine sent down to lab
--- NOTE | 2019-05-15 20:10 | Emergency Room Report ---
History of Present Illness General Chief Complaint: Pain Source: Patient Present Illness HPI 33-year-old female with history of lupus currently taking Plaquenil on daily basis here complaining of generalized body aches x2 days. Patient reports that this feels like her usual lupus flareup and she usually receives prednisone for her flareups. Patient reports that she has history of renal stones and any urinary symptoms as well as hematuria at this time. Complains of back pain however bilateral denies any pain radiation to the suprapubic area. Denies chest pain, shortness of breath, palpitation, fever and chills. Reports at this time she has not yet developed a butterfly rash. Patient sitting comfortably with stable vital signs. Last menstrual period was 1 month ago and regular. Denies . Has not taken any other medication for symptom relief. Patient does have a spreading machine operator which she recently visited in mid April and wants to follow-up this coming week due to flareup. Allergies: Coded Allergies: ACETAMINOPHEN (Verified Allergy, Severe, Itching, HIVES, 04/16/18) CODEINE (Verified Allergy, Severe, Itching, HIVES, 04/16/18) HYDROCODONE (Verified Allergy, Severe, Itching, HIVES, 04/16/18) TRAMADOL (Verified Allergy, Unknown, 04/16/18) AMOXICILLIN (Verified Adverse Reaction, Unknown, GI UPSET, 04/16/18) Patient History Past Medical History: see triage record Past Surgical History: unable to obtain Pertinent Family History: none Last Menstrual Period: 04/15/19 Now: No Immunizations: UTD Reviewed Nursing Documentation: PMH: Agreed; PSxH: Agreed Nursing Documentation-PMH Past Medical History: No History, Except For Hx Hypertension: No - Hypothyroidism Hx Pacemaker: No - FIBROMYALGIA Hx Asthma: Yes Hx COPD: No Hx Diabetes: No Hx Cancer: No Hx Gastrointestinal Problems: Yes - Gastric ulcer Hx Dialysis: No Hx Neurological Problems: Yes - BRAIN TURMOR NON MALIGNENT Hx Cerebrovascular Accident: Yes Hx Seizures: No Review of Systems All Other Systems: negative except mentioned in HPI Physical Exam Vital Signs Date Time Temp Pulse Resp B/P (MAP) Pulse Ox O2 Delivery O2 Flow Rate FiO2 05/15/19 19:40 98.4 91 16 114/81 (92) 98 Room Air Sp02 EP Interpretation: reviewed, normal General Appearance: no apparent distress, alert, GCS 15, non-toxic Head: normocephalic, atraumatic Eyes: bilateral eye normal inspection, bilateral eye PERRL ENT: hearing grossly normal, normal pharynx, no angioedema, normal voice Neck: full range of motion, supple/symm/no masses Respiratory: chest non-tender, lungs clear, normal breath sounds, no rhonchi, no wheezing, speaking full sentences Cardiovascular #1: regular rate, rhythm, no edema, no murmur, normal capillary refill Cardiovascular #2: 2+ radial (R), 2+ radial (L) Gastrointestinal: normal bowel sounds, non tender, soft, non-distended, no guarding, no rebound Rectal: deferred Genitourinary: normal inspection, no CVA tenderness Neurologic: alert, oriented x3, responsive, motor strength/tone normal, sensory intact, speech normal Psychiatric: judgement/insight normal, memory normal, mood/affect normal, no suicidal/homicidal ideation Skin: no rash Lymphatic: no adenopathy Medical Decision Making PA Attestation All diagnoses and treatment plans were reviewed and discussed with my supervising physician Dr. Castano Diagnostic Impression: Primary Impression: Lupus (systemic lupus erythematosus) Additional Impression: UTI (urinary tract infection) ER Course 33-year-old female with history of lupus currently taking Plaquenil on daily basis here complaining of generalized body aches x2 days. Patient reports that this feels like her usual lupus flareup and she usually receives prednisone for her flareups. Patient reports that she has history of renal stones and any urinary symptoms as well as hematuria at this time. Complains of back pain however bilateral denies any pain radiation to the suprapubic area. Denies chest pain, shortness of breath, palpitation, fever and chills. Reports at this time she has not yet developed a butterfly rash. Patient sitting comfortably with stable vital signs. Last menstrual period was 1 month ago and regular. Denies . Has not taken any other medication for symptom relief. Patient does have a spreading machine operator which she recently visited in mid April and wants to follow-up this coming week due to flareup. Ddx considered but are not limited to : Cellulitis, lupus flareup, superficial infection, abscess Vital signs: are WNL, pt. is afebrile H&PE are most consistent with: Lupus flareup< UTI ORDERS: UA, urine test, prednisone, macrobid ED INTERVENTIONS: None required at this time. DISCHARGE: At this time pt. is stable for d/c to home. Will provide printed patient care instructions, and any necessary prescriptions. Care plan and follow up instructions have been discussed with the patient prior to discharge. Take medication as directed, follow-up with primary care provider as well as your spreading machine operator. At this time no further blood work is needed as he has stable vital signs. However if worsening symptoms return to the emergency room. Last Vital Signs Date Time Temp Pulse Resp B/P (MAP) Pulse Ox O2 Delivery O2 Flow Rate FiO2 05/15/19 19:49 98.4 94 17 120/81 99 Room Air Disposition: HOME, SELF-CARE Condition: Stable Scripts Prednisone* (PREDNISONE*) 20 Mg Tablet 60 MG ORAL DAILY for 5 Days, #15 TAB Prov: Edelmira Granados 05/15/19 Patient Instructions: Systemic Lupus Erythematosus, Adult, Urinary Tract Infection, [id number] Additional Instructions: Take medication as directed, follow-up with primary care provider as well as your spreading machine operator. At this time no further blood work is needed as he has stable vital signs. However if worsening symptoms return to the emergency room. Edelmira Granados May 15, 2019 20:10
[2019-05-15 20:31] LABS: BILIRUBIN, URINE NEGATIVE (NEGATIVE); COLOR,URINE PALE YELLOW; GLUCOSE, URINE (UA) NEGATIVE (NEGATIVE); KETONES,URINE NEGATIVE (NEGATIVE); LEUKOCYTE ESTERASE ,URINE 3+ (NEGATIVE); NITRITE,URINE NEGATIVE (NEGATIVE); PH,URINE 6 (4.5-8.0); PROTEIN,URINE NEGATIVE (NEGATIVE); UROBILINOGEN,URINE NORMAL MG/DL (0.0-1.0)
[2019-05-15 20:33] LABS: APPEARANCE,URINE SLIGHTLY CLOUDY
[2019-05-15] MEDS ORDERED: PREDNISONE20 MG ORAL (20:42)
[2019-05-15] MEDS ORDERED: NITROFURANTOIN100 M2 ORAL (20:47)
--- NOTE | 2019-05-15 20:53 | NUR ---
ER DISCHARGE NOTE: Patient is cleared to be discharged per ERMD, pt is aox4, on room air, with stable vital signs. pt was given dc and prescription instructions, pt was able to verbalize understanding, pt id band removed without complications. pt is able to ambulate with steady gait. pt took all belongings.
== END 2019-05-15 20:53 | disposition home or self-care (01) ==
LOC: EMR 20:10
DX: M32.9 Systemic lupus erythematosus, unspecified (principal); N39.0 Urinary tract infection, site not specified; J45.909 Unspecified asthma, uncomplicated; M79.7 Fibromyalgia; Z86.73 Personal history of transient ischemic attack (TIA), and cerebral infarction without residual deficits; Z87.11 Personal history of peptic ulcer disease; E03.9 Hypothyroidism, unspecified; Z86.011 Personal history of benign neoplasm of the brain; Z88.1 Allergy status to other antibiotic agents; Z88.6 Allergy status to analgesic agent; Z87.442 Personal history of urinary calculi
CPT/HCPCS: 81001; 81025; 87086; 99283; J7512

== ENCOUNTER 2019-06-11 00:58 | Emergency (ER) | payer MEDICARE, MEDICAID ==
[~2019-06-11] VITALS: Ht 177.8 cm; Wt 127.0 kg
[~2019-06-11 00:58] MED LIST changes: +NITROFURANTOIN100 M2 ORAL
[2019-06-11 01:30] VITALS: BP 119/84
[2019-06-11] MEDS ORDERED: Ketorolac 30mg Inj IV ONE (02:00)
[2019-06-11 02:24] LABS: BASOPHILS % (AUTO) 0.9 % (0.0-2.0); EOSINOPHILS % (AUTO) 2.8 % (0.0-3.0); HEMATOCRIT 36.8 % (37.0-47.0); HEMOGLOBIN 11.9 G/DL (12.0-16.0); LYMPHOCYTES % (AUTO) 38.7 % (20.0-45.0); MEAN CORPUSCULAR VOLUME 86 FL (80-99); MONOCYTES % (AUTO) 5.4 % (1.0-10.0); NEUTROPHILS % (AUTO) 52.1 % (45.0-75.0); PLATELET COUNT 280 K/UL (150-450); RED BLOOD COUNT 4.29 M/UL (4.20-5.40); RED CELL DISTRIBUTION WIDTH 15.6 % (11.6-14.8); WHITE BLOOD COUNT 6.6 K/UL (4.8-10.8)
[2019-06-11 02:28] LABS: APPEARANCE,URINE CLEAR; BILIRUBIN, URINE NEGATIVE (NEGATIVE); COLOR,URINE PALE YELLOW; GLUCOSE, URINE (UA) NEGATIVE (NEGATIVE); KETONES,URINE NEGATIVE (NEGATIVE); LEUKOCYTE ESTERASE ,URINE NEGATIVE (NEGATIVE); NITRITE,URINE NEGATIVE (NEGATIVE); PH,URINE 6 (4.5-8.0); PROTEIN,URINE NEGATIVE (NEGATIVE); UROBILINOGEN,URINE NORMAL MG/DL (0.0-1.0)
[2019-06-11 02:36] LABS: ANION GAP 9 mmol/L (5-15); BLOOD UREA NITROGEN 14 mg/dL (7-18); CALCIUM 9.3 MG/DL (8.5-10.1); CARBON DIOXIDE 24 MMOL/L (21-32); CHLORIDE 108 MMOL/L (98-107); CREATININE 0.9 MG/DL (0.55-1.30); POTASSIUM 3.9 MMOL/L (3.5-5.1); SODIUM 141 MMOL/L (136-145)
[2019-06-11 02:41] LABS: ALANINE AMINOTRANSFERASE 35 U/L (12-78); ALBUMIN 3.5 G/DL (3.4-5.0); ALBUMIN/GLOBULIN RATIO 0.9 (1.0-2.7); ALKALINE PHOSPHATASE 62 U/L (46-116); ASPARTATE AMINO TRANSFERASE 26 U/L (15-37); BILIRUBIN,TOTAL 0.2 MG/DL (0.2-1.0)
[2019-06-11] MEDS ORDERED: ONDANSETRON ODT4 MG BC (03:01)
--- NOTE | 2019-06-11 03:05 | Emergency Room Report ---
History of Present Illness General Chief Complaint: Pain Source: Patient Present Illness HPI 33-year-old female with past medical history of lupus, GERD, gastric ulcer, kidney stones who presents with new onset epigastric abdominal pain for 1 to 2 days. She states that her pain is similar to her lupus flareups however she is unsure if it similar to a kidney stone. She denies any hematuria, increased urination, increased urine frequency, urgency. She has been taking her gastric ulcer medications as prescribed. She denies any episodes of vomiting, diarrhea , constipation, fevers. She does note some mild nausea. She said no abdominal surgeries Allergies: Coded Allergies: ACETAMINOPHEN (Verified Allergy, Severe, Itching, HIVES, 04/16/18) CODEINE (Verified Allergy, Severe, Itching, HIVES, 04/16/18) HYDROCODONE (Verified Allergy, Severe, Itching, HIVES, 04/16/18) TRAMADOL (Verified Allergy, Unknown, 04/16/18) AMOXICILLIN (Verified Adverse Reaction, Unknown, GI UPSET, 04/16/18) Patient History PMH Narrative see HPI PSxH Narrative none Last Menstrual Period: 05/18/19 Now: No Nursing Documentation-PMH Past Medical History: No History, Except For Hx Hypertension: No - Hypothyroidism Hx Pacemaker: No - FIBROMYALGIA Hx Asthma: Yes Hx COPD: No Hx Diabetes: No Hx Cancer: No Hx Gastrointestinal Problems: Yes - Gastric ulcer Hx Dialysis: No Hx Neurological Problems: Yes - BRAIN TURMOR NON MALIGNENT Hx Cerebrovascular Accident: Yes Hx Seizures: No Review of Systems Constitutional: Denies: chills, fever Respiratory: Denies: cough, shortness of breath Cardiovascular: Denies: chest pain, palpitations Gastrointestinal: Reports: abdominal pain, nausea; Denies: diarrhea, vomiting Genitourinary: Denies: hematuria, pain Musculoskeletal: Denies: joint swelling Skin: Denies: rash, lesions Neurological: Denies: headache, dizziness Physical Exam Vital Signs Date Time Temp Pulse Resp B/P (MAP) Pulse Ox O2 Delivery O2 Flow Rate FiO2 06/11/19 01:11 98.1 83 18 119/84 (96) 99 Room Air Sp02 EP Interpretation: reviewed General Appearance: well appearing, no apparent distress, non-toxic Head: normocephalic, atraumatic Eyes: bilateral eye normal inspection ENT: hearing grossly normal, EOM grossly intact, moist mucus membranes Neck: supple Respiratory: lungs clear, normal breath sounds, no respiratory distress, speaking full sentences Cardiovascular #1: regular rate, rhythm, normal capillary refill Cardiovascular #2: 2+ radial (R), 2+ radial (L) Gastrointestinal: normal inspection, non tender, soft, no mass, no bruit, non- distended, no guarding, no hernia, no rebound Rectal: deferred Musculoskeletal: moves extm spontaneously, no lower extremity edema Neurologic: grossly normal Psychiatric: mood/affect normal Skin: warm/dry, normal turgor Medical Decision Making Diagnostic Impression: Primary Impression: Abdominal pain ER Course 33-year-old female who presents with abdominal pain epigastric for 1 to 2 days, history is significant for lupus GERD gastric ulcer and kidney stones. Patient denies any urinary complaints. Patient's been compliant with her meds, found to have no prior surgeries Differential includes lupus flareup, gastric ulcer, kidney stone, UTI, gastritis , gastroenteritis Patients testing reviewed and pain improved. Pt is stable for discharge and outpt follow up. recommended anti nausea medication for symptoms control. Laboratory Tests Test 06/11/19 02:07 White Blood Count 6.6 K/UL (4.8-10.8) Red Blood Count 4.29 M/UL (4.20-5.40) Hemoglobin 11.9 G/DL (12.0-16.0) L Hematocrit 36.8 % (37.0-47.0) L Mean Corpuscular Volume 86 FL (80-99) Mean Corpuscular Hemoglobin 27.7 PG (27.0-31.0) Mean Corpuscular Hemoglobin Concent 32.2 G/DL (32.0-36.0) Red Cell Distribution Width 15.6 % (11.6-14.8) H Platelet Count 280 K/UL (150-450) Mean Platelet Volume 9.2 FL (6.5-10.1) Neutrophils (%) (Auto) 52.1 % (45.0-75.0) Lymphocytes (%) (Auto) 38.7 % (20.0-45.0) Monocytes (%) (Auto) 5.4 % (1.0-10.0) Eosinophils (%) (Auto) 2.8 % (0.0-3.0) Basophils (%) (Auto) 0.9 % (0.0-2.0) Urine Color Pale yellow Urine Appearance Clear Urine pH 6 (4.5-8.0) Urine Specific [place] 1.015 (1.005-1.035) Urine Protein Negative (NEGATIVE) Urine Glucose (UA) Negative (NEGATIVE) Urine Ketones Negative (NEGATIVE) Urine Blood Negative (NEGATIVE) Urine Nitrite Negative (NEGATIVE) Urine Bilirubin Negative (NEGATIVE) Urine Urobilinogen Normal MG/DL (0.0-1.0) Urine Leukocyte Esterase Negative (NEGATIVE) Sodium Level 141 MMOL/L (136-145) Potassium Level 3.9 MMOL/L (3.5-5.1) Chloride Level 108 MMOL/L (98-107) H Carbon Dioxide Level 24 MMOL/L (21-32) Anion Gap 9 mmol/L (5-15) Blood Urea Nitrogen 14 mg/dL (7-18) Creatinine 0.9 MG/DL (0.55-1.30) Estimate Glomerular Filtration Rate > 60 mL/min (>60) Glucose Level 133 MG/DL (74-106) H Calcium Level 9.3 MG/DL (8.5-10.1) Total Bilirubin 0.2 MG/DL (0.2-1.0) Aspartate Amino Transferase (AST) 26 U/L (15-37) Alanine Aminotransferase (ALT) 35 U/L (12-78) Alkaline Phosphatase 62 U/L (46-116) Total Protein 7.5 G/DL (6.4-8.2) Albumin 3.5 G/DL (3.4-5.0) Globulin 4.0 g/dL Albumin/Globulin Ratio 0.9 (1.0-2.7) L Lipase 191 U/L (73-393) Last Vital Signs Date Time Temp Pulse Resp B/P (MAP) Pulse Ox O2 Delivery O2 Flow Rate FiO2 06/11/19 02:28 98.1 06/11/19 01:30 82 18 119/84 99 Room Air Disposition: HOME, SELF-CARE Condition: Stable Scripts Ondansetron Odt* (ZOFRAN ODT*) 4 Mg Tab.rapdis 4 MG BC EVERY 8 HOURS PRN for Nausea & Vomiting, #10 TAB 0 Refills Prov: Geovany Levi M.D. 06/11/19 Referrals: [facility] Patient Instructions: Abdominal Pain, Adult Additional Instructions: Please follow-up with your primary care doctor in 2 to 3 days for reevaluation. Return to emergency room if you are having worsening symptoms or unable to tolerate medications by mouth. Or any new symptoms arise Geovany Levi M.D. Jun 11, 2019 03:05
[2019-06-11 03:30] VITALS: BP 119/84
== END 2019-06-11 03:30 | disposition home or self-care (01) ==
LOC: EMR 01:34
DX: R10.13 Epigastric pain (principal); K21.9 Gastro-esophageal reflux disease without esophagitis; E03.9 Hypothyroidism, unspecified; M79.7 Fibromyalgia; Z86.73 Personal history of transient ischemic attack (TIA), and cerebral infarction without residual deficits
CPT/HCPCS: 36415; 80053; 81003; 83690; 85025; 96374; 96375; 99284; J1885; J2405; S0028

== ENCOUNTER 2019-07-16 22:22 | Emergency (ER) | payer MEDICARE, MEDICAID ==
[~2019-07-16] VITALS: Ht 175.3 cm; Wt 131.5 kg
[~2019-07-16 22:22] MED LIST changes: +ONDANSETRON ODT4 MG BC
[2019-07-16] MEDS ORDERED: TOPIRAMATE100 MG ORAL (22:40)
[2019-07-16] MEDS ORDERED: CABERGOLINE0.5 MG PO (22:40)
[2019-07-16] MEDS ORDERED: SYNTHROID150 MCG ORAL (22:40)
[2019-07-16] MEDS ORDERED: MAGNESIUM100 MG PO (22:40)
--- NOTE | 2019-07-16 22:45 | NUR ---
ED Nurse Note: Patient walked in to ER c/o flu like symptoms. Stated has lupus, and has lower back pain since yesterday. Patient AAO x4, VSS at this time, skin is warm to touch.
[2019-07-16 22:52] VITALS: BP 94/61
--- NOTE | 2019-07-16 23:34 | Diagnostic Imaging Report ---
EXAM: XR Chest, 1 View CLINICAL HISTORY: COUGH TECHNIQUE: Frontal view of the chest. COMPARISON: No relevant prior studies available. FINDINGS: Lungs: No consolidation. Accentuation of pulmonary markings. Reduced lung volumes. Pleural space: Unremarkable. No pneumothorax. Heart: Unremarkable. No cardiomegaly. Mediastinum: Unremarkable. Bones/joints: No acute fracture. IMPRESSION: No confluent consolidation..
[2019-07-17] MEDS ORDERED: TAMIFLU75 MG ORAL (00:02)
--- NOTE | 2019-07-17 00:02 | Emergency Room Report ---
History of Present Illness General Chief Complaint: Flu Like Symptoms Source: Patient Present Illness HPI 33-year-old female presents with cough, congestion, chills x3 days no aggravating leaving factor severity is moderate, constant, patient wants to be treated for the flu patient denies any chest pain, patient presents for evaluation Allergies: Coded Allergies: ACETAMINOPHEN (Verified Allergy, Severe, Itching, HIVES, 04/16/18) CODEINE (Verified Allergy, Severe, Itching, HIVES, 04/16/18) HYDROCODONE (Verified Allergy, Severe, Itching, HIVES, 04/16/18) TRAMADOL (Verified Allergy, Unknown, 04/16/18) AMOXICILLIN (Verified Adverse Reaction, Unknown, GI UPSET, 04/16/18) Patient History Past Medical History: see triage record Last Menstrual Period: 07/14/2019 Now: No Reviewed Nursing Documentation: PMH: Agreed; PSxH: Agreed Nursing Documentation-PMH Past Medical History: No History, Except For Hx Hypertension: No - Hypothyroidism Hx Pacemaker: No - FIBROMYALGIA Hx Asthma: Yes Hx COPD: No Hx Diabetes: No Hx Cancer: No Hx Gastrointestinal Problems: Yes - Gastric ulcer Hx Dialysis: No Hx Neurological Problems: Yes - BRAIN TURMOR NON MALIGNENT Hx Cerebrovascular Accident: Yes Hx Seizures: No Review of Systems All Other Systems: negative except mentioned in HPI Physical Exam Vital Signs Date Time Temp Pulse Resp B/P (MAP) Pulse Ox O2 Delivery O2 Flow Rate FiO2 07/16/19 22:35 98.1 97 14 94/61 (72) 99 Room Air Sp02 EP Interpretation: reviewed, normal General Appearance: well appearing, no apparent distress, alert, other - On her phone in no acute distress Head: normocephalic, atraumatic Eyes: bilateral eye PERRL, bilateral eye EOMI ENT: uvula midline, moist mucus membranes, nasal congestion Neck: supple, thyroid normal, supple/symm/no masses Respiratory: lungs clear, no respiratory distress, no retraction, no accessory muscle use Cardiovascular #1: normal peripheral pulses, regular rate, rhythm, no edema, no gallop, no murmur Gastrointestinal: non tender, soft, no guarding, no rebound Musculoskeletal: normal inspection Neurologic: alert, oriented x3 Psychiatric: mood/affect normal Skin: no rash, warm/dry Medical Decision Making Diagnostic Impression: Primary Impression: Influenza-like symptoms ER Course 33-year-old female history of lupus, will treat for influenza X-rays currently negative for any acute cardiopulmonary pathology Disposition home with return precautions Last Vital Signs Date Time Temp Pulse Resp B/P (MAP) Pulse Ox O2 Delivery O2 Flow Rate FiO2 07/16/19 22:52 97 14 Room Air 07/16/19 22:52 98.1 94/61 99 Disposition: HOME, SELF-CARE Condition: Stable Scripts Oseltamivir Phosphate (Tamiflu) 75 Mg Capsule 75 MG ORAL TWICE A DAY, #10 CAP Prov: Raphael Paz MD 07/17/19 Referrals: [facility] Departure Forms: Return to Work Return to Work in (Days): 3 Patient Instructions: Influenza, Adult, [id number] Additional Instructions: The patient was provided with discharge instructions, notified to follow-up with a primary care doctor and or specialist in the next 24-48 hours, and to return to the ED if they have worsening of their symptoms. Please note that this report is being documented using Bevy technology. This can lead to erroneous entry secondary to incorrect interpretation by the dictating instrument. Raphael Paz MD Jul 17, 2019 00:02
[2019-07-17 00:13] VITALS: BP 94/61
--- NOTE | 2019-07-17 00:15 | NUR ---
ED Nurse Note: Pt cleared by health care Provider for discharge. DC instructions/prescription was given and explained to pt and verbalized understanding of teachings. All medical deviecs such as ID band removed. Pt is AAO x4, ambulatory and left with all personal belongings.
[2019-07-17] MEDS ORDERED: Ketorolac 60mg Inj IM ONE (00:30)
== END 2019-07-17 00:20 | disposition home or self-care (01) ==
LOC: EMR 23:59
DX: R05 Cough (principal); Z88.6 Allergy status to analgesic agent; Z88.0 Allergy status to penicillin; E03.9 Hypothyroidism, unspecified; M79.7 Fibromyalgia; Z86.73 Personal history of transient ischemic attack (TIA), and cerebral infarction without residual deficits
CPT/HCPCS: 71045; 81025; 96372; 99283

== ENCOUNTER 2020-06-26 15:40 | Emergency (ER) | payer MEDICARE, MEDICAID ==
[~2020-06-26] VITALS: Ht 175.3 cm; Wt 127.9 kg
[~2020-06-26 15:40] MED LIST changes: +ASPIRIN-LOW81 MG ORAL; +MAGNESIUM100 MG PO; +TAMIFLU75 MG ORAL; +TOPIRAMATE100 MG ORAL
[2020-06-26 15:51] VITALS: BP 112/74
--- NOTE | 2020-06-26 15:53 | NUR ---
ED Nurse Note: pt walked in to ER from home due to loss of smell and taste since today. pt aao x4 and ambulatory. no other covid symptoms at this time. vs stable. pt placed in room and door closed.
--- NOTE | 2020-06-26 15:55 | NUR ---
ED Nurse Note: x-ray at bedside.
--- NOTE | 2020-06-26 16:15 | Emergency Room Report ---
History of Present Illness General Chief Complaint: General Complaint Source: Patient Present Illness HPI 34-year-old female with history of lupus and recent blood transfusion here complaining of 3 days of loss of taste and smell, shortness of breath. Denies any cough and congestion. Has any fever and chills, diarrhea. Appears to be stable with stable vital signs. Speaking in full sentences. Has history of asthma and is requesting an inhaler. Denies . Denies headache and dizziness. Allergies: Coded Allergies: HYDROCODONE (Verified Allergy, Severe, Itching, HIVES, 04/16/18) TRAMADOL (Verified Allergy, Unknown, 04/16/18) AMOXICILLIN (Verified Adverse Reaction, Unknown, GI UPSET, 04/16/18) COVID-19 Screening Contact w/high risk pt: No Experienced COVID-19 symptoms?: No COVID-19 Testing performed BLOWER BLAST FURNACE: No Patient History Past Medical History: see triage record Past Surgical History: none Pertinent Family History: none Last Menstrual Period: 06/23/2020 Now: No Immunizations: UTD Reviewed Nursing Documentation: PMH: Agreed; PSxH: Agreed Nursing Documentation-PMH Past Medical History: No History, Except For Hx Hypertension: No - Hypothyroidism Hx Pacemaker: No - FIBROMYALGIA Hx Asthma: Yes Hx COPD: No Hx Diabetes: No Hx Cancer: No Hx Gastrointestinal Problems: Yes - Gastric ulcer Hx Dialysis: No Hx Neurological Problems: Yes - BRAIN TURMOR NON MALIGNENT Hx Cerebrovascular Accident: Yes Hx Seizures: No Review of Systems All Other Systems: negative except mentioned in HPI Physical Exam Vital Signs Date Time Temp Pulse Resp B/P (MAP) Pulse Ox O2 Delivery O2 Flow Rate FiO2 06/26/20 15:44 97.5 84 19 112/74 (87) 100 Room Air Sp02 EP Interpretation: reviewed, normal General Appearance: no apparent distress, alert, GCS 15, non-toxic Head: normocephalic, atraumatic Eyes: bilateral eye normal inspection, bilateral eye PERRL ENT: hearing grossly normal, normal pharynx, no angioedema, normal voice Neck: no meningismus Respiratory: no respiratory distress, no retraction, no accessory muscle use Cardiovascular #1: regular rate, rhythm, no edema, no murmur Gastrointestinal: non-distended Musculoskeletal: back normal Neurologic: alert, motor strength/tone normal, oriented x3, sensory intact, responsive, speech normal Psychiatric: judgement/insight normal, memory normal, mood/affect normal, no suicidal/homicidal ideation Skin: no rash Lymphatic: no adenopathy Medical Decision Making PA Attestation ALL Diagnosis and treatment plan reviewed and discussed with my supervising physician Dr. Segura Diagnostic Impression: Primary Impression: Suspected 2019 novel coronavirus infection ER Course 34-year-old female with history of lupus and recent blood transfusion here complaining of 3 days of loss of taste and smell, shortness of breath. Denies any cough and congestion. Has any fever and chills, diarrhea. Appears to be stable with stable vital signs. Speaking in full sentences. Has history of asthma and is requesting an inhaler. Denies . Denies headache and dizziness. Ddx considered but are not limited to: strep pharyngitis, URI, tonsillitis, peritonsillar abscess, influneza, suspected coronavirus Vital signs: are WNL, pt. is afebrile H&PE are most consistent with: Suspected coronavirus ORDERS: Chest x-ray, azithromycin, prednisone, albuterol ED INTERVENTIONS: None required at this time. DISCHARGE: At this time pt. is stable for d/c to home. Will provide printed patient care instructions, and any necessary prescriptions. Care plan and follow up instructions have been discussed with the patient prior to discharge. At this time advised patient to go home and quarantine as patient O2 sats within normal limits however advised patient return to emergency room with difficulty breathing and low oxygenation. If worsening symptoms return to the emergency room. Also advised patient to get tested for Covid. Due to loss of taste and smell patient suspected to have coronavirus. Chest X-Ray Diagnostic Results Chest X-Ray Diagnostic Results : Chest X-Ray Ordered: Yes # of Views/Limited/Complete: 1 View Indication: Shortness of Breath EP Interpretation: Yes BRANDON Xray: Interpretation reviewed, by supervising MD, and agrees with find ings. Interpretation: other - Bilateral lower lobe infiltrate Impression: Other - Pneumonia Electronically Signed by: Edelmira Lindo PA-C Last Vital Signs Date Time Temp Pulse Resp B/P (MAP) Pulse Ox O2 Delivery O2 Flow Rate FiO2 06/26/20 15:51 84 19 Room Air 06/26/20 15:51 97.5 112/74 100 Disposition: HOME, SELF-CARE Condition: Stable Scripts Albuterol Sulfate (VENTOLIN HFA) 18 Gm Hfa.aer.ad 2 PUFFS INH EVERY 6 HOURS, #18 GM 0 Refills Prov: Edelmira Granados 06/26/20 Prednisone* (PREDNISONE*) 20 Mg Tablet 40 MG ORAL DAILY for 5 Days, #10 TAB Prov: Edelmira Granados 06/26/20 Azithromycin* (ZITHROMAX*) 250 Mg Tablet 250 MG ORAL DAILY, #6 TAB 0 Refills Take two tables once daily for 1 day, then one tablet once daily for 4 days. Prov: Edelmira Granados 06/26/20 Referrals: Jose Alonzo MD (PCP) Patient Instructions: Community-Acquired Pneumonia, Adult Additional Instructions: Take medication as directed, quarantine yourself for at least 2 weeks, if worsening symptoms, low pulse ox, febrile return to the emergency room. Edelmira Granados Jun 26, 2020 16:14
[2020-06-26] MEDS ORDERED: ZITHROMAX250 MG ORAL (16:16)
[2020-06-26] MEDS ORDERED: VENTOLIN HFA18 GM INH (16:16)
[2020-06-26] MEDS ORDERED: PREDNISONE20 MG ORAL (16:16)
[2020-06-26 16:21] VITALS: BP 112/74
--- NOTE | 2020-06-26 16:21 | Diagnostic Imaging Report ---
. Indication: Shortness of breath Technique: One view of the chest Comparison: 07/16/2019 Findings: Body habitus limits evaluation. There is questionably a peripheral infiltrate on the left, although more likely an artifact of overlying soft tissue. No definite infiltrates or effusions otherwise. Heart size Impression: Doubt acute process. Peripheral opacity on the left is probably just due to overlying soft tissue but peripheral infiltrate possible. Correlate with clinical findings
== END 2020-06-26 16:20 | disposition home or self-care (01) ==
LOC: EMR 16:02
DX: R43.8 Other disturbances of smell and taste (principal); R06.02 Shortness of breath; J45.909 Unspecified asthma, uncomplicated; E03.9 Hypothyroidism, unspecified; M79.7 Fibromyalgia; Z88.5 Allergy status to narcotic agent; Z88.1 Allergy status to other antibiotic agents; Z86.73 Personal history of transient ischemic attack (TIA), and cerebral infarction without residual deficits; Z86.011 Personal history of benign neoplasm of the brain
CPT/HCPCS: 71045; 99283

== ENCOUNTER 2020-09-21 15:44 | Emergency (ER) | payer MEDICARE, MEDICAID ==
[~2020-09-21] VITALS: Ht 175.3 cm; Wt 135.2 kg
[~2020-09-21 15:44] MED LIST changes: +VENTOLIN HFA18 GM INH; +ZITHROMAX250 MG ORAL
[2020-09-21 16:08] VITALS: BP 114/78
--- NOTE | 2020-09-21 16:15 | Emergency Room Report ---
History of Present Illness General Chief Complaint: Abdominal Pain Source: Patient Present Illness HPI Patient is a 35 yo F, PMHx of Lupus and anemia (weekly infusions of iron and/or blood) who presents to the ER complaining of abdominal pain. Patient complains of abdominal pain for the past 3 days. She complains of nausea but denies any vomiting. She denies any fever or chills. Patient complains of right upper quadrant abdominal pain. She also complains that her feet have been swollen for the past 2 days. She complains of calf tenderness. She denies any shortness of breath or chest pain. She denies any dysuria or hematuria. She states that she received an iron infusion this morning. 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 COVID-19 Screening: Negative COVID-19 COVID-19 Testing Source: [employer] Patient History Reviewed Nursing Documentation: PMH: Agreed; PSxH: Agreed Nursing Documentation-PMH Hx Hypertension: No - Hypothyroidism Hx Pacemaker: No - FIBROMYALGIA Hx Asthma: Yes Hx COPD: No Hx Diabetes: No Hx Cancer: No Hx Gastrointestinal Problems: Yes - Gastric ulcer Hx Dialysis: No Hx Neurological Problems: Yes - BRAIN TUMOR NON MALIGNANT Hx Cerebrovascular Accident: Yes Hx Seizures: No Review of Systems All Other Systems: negative except mentioned in HPI Physical Exam Vital Signs Date Time Temp Pulse Resp B/P (MAP) Pulse Ox O2 Delivery O2 Flow Rate FiO2 09/21/20 15:49 98.4 80 17 114/78 (90) 97 Room Air Sp02 EP Interpretation: reviewed, normal General Appearance: no apparent distress, alert, GCS 15, non-toxic Head: normocephalic, atraumatic Eyes: bilateral eye normal inspection, bilateral eye PERRL ENT: hearing grossly normal, normal pharynx, no angioedema, normal voice Neck: full range of motion, supple/symm/no masses Respiratory: chest non-tender, lungs clear, normal breath sounds, speaking full sentences Cardiovascular #1: regular rate, rhythm, no edema Gastrointestinal: other - Right upper quadrant and epigastric tenderness to pa lpation no guarding or rebound tenderness, overweight Rectal: deferred Musculoskeletal: normal range of motion, swelling, other - Bilateral calf tenderness Neurologic: air cargo specialist III-XII nml as tested, oriented x3 Psychiatric: no suicidal/homicidal ideation Skin: no rash Lymphatic: no adenopathy Medical Decision Making Diagnostic Impression: Primary Impression: Abdominal pain Additional Impressions: Pedal edema Hypothyroidism ER Course Prior to completion of the ER work-up including ultrasound duplex of the lower extremity and CT abdomen pelvis patient stated that she needed to leave. 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 I advised her that she can return to the ER anytime to complete her emergency room work-up. The patient is of adult age and has sound mind with no evidence of altered mental status suggesting metabolic or infections etiologies. I explained in layman's terms the risk of leaving against medical advise including and significant comorbidity. The patient was given reasonable options. This was explained in front of them and the bedside nurse Yadira ANDINO. The AMA for was signed and witnessed by a nurse and the patient. Laboratory Tests Test 09/21/20 16:00 White Blood Count 9.1 K/UL (4.8-10.8) Red Blood Count 4.88 M/UL (4.20-5.40) Hemoglobin 11.5 G/DL (12.0-16.0) L Hematocrit 37.3 % (37.0-47.0) Mean Corpuscular Volume 76 FL (80-99) L Mean Corpuscular Hemoglobin 23.6 PG (27.0-31.0) L Mean Corpuscular Hemoglobin Concent 30.8 G/DL (32.0-36.0) L Red Cell Distribution Width 19.2 % (11.6-14.8) H Platelet Count 354 K/UL (150-450) Mean Platelet Volume 10.5 FL (6.5-10.1) H Neutrophils (%) (Auto) 60.1 % (45.0-75.0) Lymphocytes (%) (Auto) 32.2 % (20.0-45.0) Monocytes (%) (Auto) 5.4 % (1.0-10.0) Eosinophils (%) (Auto) 1.2 % (0.0-3.0) Basophils (%) (Auto) 1.1 % (0.0-2.0) Prothrombin Time 10.3 SEC (9.30-11.50) Prothrombin Time INR 0.9 (0.9-1.1) Activated Partial Thromboplast Time 25 SEC (23-33) Urine Color Pale yellow Urine Appearance Clear Urine pH 6 (4.5-8.0) Urine Specific [place] 1.015 (1.005-1.035) Urine Protein Negative (NEGATIVE) Urine Glucose (UA) Negative (NEGATIVE) Urine Ketones Negative (NEGATIVE) Urine Blood Negative (NEGATIVE) Urine Nitrite Negative (NEGATIVE) Urine Bilirubin Negative (NEGATIVE) Urine Urobilinogen Normal MG/DL (0.0-1.0) Urine Leukocyte Esterase Negative (NEGATIVE) Urine HCG, Qualitative Negative (NEGATIVE) Sodium Level 141 MMOL/L (136-145) Potassium Level 3.8 MMOL/L (3.5-5.1) Chloride Level 106 MMOL/L (98-107) Carbon Dioxide Level 28 MMOL/L (21-32) Anion Gap 7 mmol/L (5-15) Blood Urea Nitrogen 13 mg/dL (7-18) Creatinine 1.1 MG/DL (0.55-1.30) Estimated Glomerular Filtration Rate > 60 mL/min (>60) Glucose Level 99 MG/DL (74-106) Calcium Level 10.2 MG/DL (8.5-10.1) H Magnesium Level 2.3 MG/DL (1.8-2.4) Total Bilirubin 0.3 MG/DL (0.2-1.0) Aspartate Amino Transferase (AST) 22 U/L (15-37) Alanine Aminotransferase (ALT) 30 U/L (12-78) Alkaline Phosphatase 72 U/L (46-116) Pro-B-Type Natriuretic Peptide 11 pg/mL (0-125) Total Protein 8.2 G/DL (6.4-8.2) Albumin 3.6 G/DL (3.4-5.0) Globulin 4.6 g/dL Albumin/Globulin Ratio 0.8 (1.0-2.7) L Lipase 283 U/L (73-393) Thyroid Stimulating Hormone (TSH) 33.198 uiU/mL (0.358-3.740) Free Thyroxine 0.38 NG/DL (0.76-1.46) L Urine Opiates Screen Negative (NEGATIVE) Urine Barbiturates Screen Negative (NEGATIVE) Phencyclidine (PCP) Screen Negative (NEGATIVE) Urine Amphetamines Screen Negative (NEGATIVE) Urine Benzodiazepines Screen Negative (NEGATIVE) Urine Cocaine Screen Negative (NEGATIVE) Urine Marijuana (THC) Screen Negative (NEGATIVE) Last Vital Signs Date Time Temp Pulse Resp B/P (MAP) Pulse Ox O2 Delivery O2 Flow Rate FiO2 09/21/20 15:49 98.4 80 17 114/78 (90) 97 Room Air Disposition: AGAINST MEDICAL ADVICE Condition: Unknown Additional Instructions: Please note that this report is being documented using Signpost technology. This can lead to erroneous entry secondary to incorrect interpretation by the dictating instrument. Suyapa Dunn M.D. Sep 21, 2020 16:15
[2020-09-21 16:19] LABS: BASOPHILS % (AUTO) 1.1 % (0.0-2.0); EOSINOPHILS % (AUTO) 1.2 % (0.0-3.0); HEMATOCRIT 37.3 % (37.0-47.0); HEMOGLOBIN 11.5 G/DL (12.0-16.0); LYMPHOCYTES % (AUTO) 32.2 % (20.0-45.0); MEAN CORPUSCULAR VOLUME 76 FL (80-99); MONOCYTES % (AUTO) 5.4 % (1.0-10.0); NEUTROPHILS % (AUTO) 60.1 % (45.0-75.0); PLATELET COUNT 354 K/UL (150-450); RED BLOOD COUNT 4.88 M/UL (4.20-5.40); RED CELL DISTRIBUTION WIDTH 19.2 % (11.6-14.8); WHITE BLOOD COUNT 9.1 K/UL (4.8-10.8)
[2020-09-21 16:24] LABS: INR 0.9 (0.9-1.1)
[2020-09-21 16:28] LABS: ANION GAP 7 mmol/L (5-15); BLOOD UREA NITROGEN 13 mg/dL (7-18); CALCIUM 10.2 MG/DL (8.5-10.1); CARBON DIOXIDE 28 MMOL/L (21-32); CHLORIDE 106 MMOL/L (98-107); CREATININE 1.1 MG/DL (0.55-1.30); POTASSIUM 3.8 MMOL/L (3.5-5.1); SODIUM 141 MMOL/L (136-145)
[2020-09-21 16:32] LABS: ALANINE AMINOTRANSFERASE 30 U/L (12-78); ALBUMIN 3.6 G/DL (3.4-5.0); ALBUMIN/GLOBULIN RATIO 0.8 (1.0-2.7); ALKALINE PHOSPHATASE 72 U/L (46-116); ASPARTATE AMINO TRANSFERASE 22 U/L (15-37); BILIRUBIN,TOTAL 0.3 MG/DL (0.2-1.0)
[2020-09-21] MEDS ORDERED: Pantoprazole Inj IVP ONE (16:45)
[2020-09-21 17:45] LABS: APPEARANCE,URINE CLEAR; BILIRUBIN, URINE NEGATIVE (NEGATIVE); COLOR,URINE PALE YELLOW; GLUCOSE, URINE (UA) NEGATIVE (NEGATIVE); KETONES,URINE NEGATIVE (NEGATIVE); LEUKOCYTE ESTERASE ,URINE NEGATIVE (NEGATIVE); NITRITE,URINE NEGATIVE (NEGATIVE); PH,URINE 6 (4.5-8.0); PROTEIN,URINE NEGATIVE (NEGATIVE); UROBILINOGEN,URINE NORMAL MG/DL (0.0-1.0)
[2020-09-21] MEDS ORDERED: fentaNYL 100 mcg/2 mL IV ONE (17:45)
[2020-09-21] MEDS ORDERED: HYDROmorphone 1mg/ml Carpuject IVP ONE (18:00)
--- NOTE | 2020-09-21 18:04 | NUR ---
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 aware. iv removed and patient allowed to leave at this time
== END 2020-09-21 18:07 | disposition left against medical advice (07) ==
LOC: EMR 16:38
DX: R10.11 Right upper quadrant pain (principal); R60.9 Edema, unspecified; E03.9 Hypothyroidism, unspecified; J45.909 Unspecified asthma, uncomplicated; Z86.73 Personal history of transient ischemic attack (TIA), and cerebral infarction without residual deficits; Z88.5 Allergy status to narcotic agent; Z88.1 Allergy status to other antibiotic agents; Z79.899 Other long term (current) drug therapy
CPT/HCPCS: 36415; 80053; 80307; 81003; 81025; 83690; 83735; 83880; 84439; 84443; 85025; 85610; 85730; 86850; 86900; 86901; 96374; 96375; 99284; C9113; J2405